=== PATIENT | female | born 1960 | race Caucasian/White ===

== ENCOUNTER 2020-05-17 08:43 | Emergency (ER) | payer SELFPAY ==
--- NOTE | 2020-05-17 09:05 | EDM.PDOC ---
ED HPI GENERAL MEDICAL PROBLEM - General Chief Complaint: Cardiovascular Problem Stated Complaint: [facility] Time Seen by Provider: 05/17/20 08:50 Source of Information: Reports: Patient History Limitations: Reports: No Limitations - History of Present Illness INITIAL COMMENTS - FREE TEXT/NARRATIVE: 59-year-old female presents to the ED per [facility] ambulance. She is currently camping in [place]. She has been camping for about a week. She reports that she was having a lot of pain in her right mid back this morning with muscle spasms. She was trying to cook some pancakes and was stirring the batter then placing a pancake on the grill, at present she feels weak and tired. When she suddenly felt weak and faint and did go down to the ground. Members people talking around her but she cannot communicate. She remembers them calling for 911. I suspect her pulse was weak but her did CPR on her for a period of time unclear for how long. Is feeling nauseated lightheaded and does have a headache. He also has diffuse right arm pain.. Denies any changes in medications recently. Denies any pain on deep respirations. Onset: Today, Sudden Onset Date: 05/17/20 Onset Time: :20 Duration: Minutes: Location: Reports: Head, Back (Mild headache. Right mid back pain which spasms intermittently along her causes rib pain.) Quality: Reports: Other (Stick type pain right parasternal thoracic spine musculature.) Severity: Moderate Improves with: Reports: Rest Worsens with: Reports: Other Context: Denies: Activity, Exercise (With certain certain movements even sitting up causes pain.), Lifting, Sick Contact, Trauma, Other Associated Symptoms: Reports: Loss of Appetite, Malaise, Weakness. 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 [No Known Home Meds] 05/17/20 [History] Social & Family History - Living Situation & Occupation Living situation: Reports: ED ROS GENERAL - Review of Systems Review Of Systems: See Below Constitutional: Reports: Decreased Appetite. Denies: Fever, Chills, Malaise, Weakness, Fatigue, Weight Loss HEENT: Reports: Glasses Respiratory: Denies: Shortness of Breath, Wheezing, Pleuritic Chest Pain, Cough, Sputum, Hemoptysis Cardiovascular: Reports: Lightheadedness. Denies: Chest Pain, Blood Pressure Problem, Claudication, Dyspnea on Exertion, Edema, Orthopnea, Palpitations, PND, Syncope, Other Endocrine: Reports: Fatigue GI/Abdominal: Reports: Nausea : Reports: No Symptoms Musculoskeletal: Reports: Back Pain (Pain in her right mid back with sharp stabbing pain intermittently due to spasm of the musculature paraspinally. Known injuries.) Skin: Reports: No Symptoms Neurological: Reports: Dizziness, Syncope (Syncopal event versus near syncopal event this morning while cooking breakfast. CPR was performed on her for short period of time by her as apparently her pulse was not detectable but was likely very weak.). Denies: Confusion Psychiatric: Reports: No Symptoms Hematologic/Lymphatic: Reports: No Symptoms Immunologic: Reports: No Symptoms ED EXAM, GENERAL - Physical Exam Exam: See Below Exam Limited By: No Limitations General Appearance: Alert, WD/WN, Anxious, Mild Distress, Other (Temperature is 36.6. Heart rate 59 and sinus respiratory 16 O2 sats 100% on room air BP 11/29/1968 but came down to 105/60.) Eye Exam: Bilateral Eye: Normal Inspection (No scleral icterus or blepharal p allor.), PERRL Throat/Mouth: Normal Inspection, Normal Lips, Normal Oropharynx, Other Head: Atraumatic, Normocephalic, Other (No outward signs of any head or facial trauma.) Neck: Normal Inspection, Supple, Non-Tender, Full Range of Motion, Other. No: Carotid Bruit, Lymphadenopathy (L), Lymphadenopathy (R) Respiratory/Chest: No Respiratory Distress, Lungs Clear, Normal Breath Sounds, No Accessory Muscle Use Cardiovascular: Normal Peripheral Pulses, Regular Rate, Rhythm, No Edema, No Gallop, No Murmur, No Rub, Bradycardia (T9 per minute) Peripheral Pulses: 3+: Carotid (L), Carotid (R), Posterior Tibial (L), Posterior Tibial (R), Dorsalis Pedis (L), Dorsalis Pedis (R) GI/Abdominal: Normal Bowel Sounds, Soft, Non-Tender, No Organomegaly, No Abnormal Bruit, No Mass, Pelvis Stable. No: Guarding, Rigid, Rebound, Tender Back Exam: Decreased Range of Motion, Muscle Spasm (Patient has significant paraspinal muscle spasm right lower thoracic spine from thoracic 7 to thoracic 11. Point of maximal tenderness appear to be rib head thoracic 9.), Paraspinal Tenderness (Side), Other. No: CVA Tenderness (L), Vertebral Tenderness ( along the lower thoracic spine) Extremities: Normal Inspection, Normal Range of Motion, Non-Tender, No Pedal Edema Neurological: Alert, Oriented, CN II-XII Intact, Normal Cognition Psychiatric: Anxious Skin Exam: Warm, Dry, Intact, Normal Color, No Rash EKG INTERPRETATION EKG Date: 05/17/20 Time: 09:25 Rhythm: Other (Sinus bradycardia) Rate (Beats/Min): 56 Hayden: LAD-Left Hayden Deviation (Left axis deviation of -32 degrees. Left anterior fascicular block pattern.) P-Wave: Absent (Consider left atrial hypertrophy pattern.) QRS: Other (Decreased voltage in the limb leads.) QT: Prolonged (QTC mildly prolonged) EKG Interpretation Comments: Abnormal ECG. Course - Vital Signs Last Recorded V/S: Last Vital Signs Temp 36.6 C 05/17/20 08:44 Pulse 59 L 05/17/20 08:44 Resp 16 05/17/20 08:44 BP 118/69 05/17/20 08:44 Pulse Ox 100 05/17/20 08:44 Orthostatic Blood Pressure [ 114/65 Standing] Orthostatic Blood Pressure [ 108/71 Sitting] Orthostatic Blood Pressure [ 114/72 Supine] - Orders/Labs/Meds Orders: Active Orders 24 hr Category Date Time Status EKG Documentation Completion [RC] STAT Care 05/17/20 09:04 Active Orthostatic Vital Signs [RC] ASDIRECTED Care 05/17/20 09:04 Active URINALYSIS W/MICROSCOPIC [UA W/MICROSCOPIC] [URIN] Stat Lab 05/17/20 09:05 Ordered Dextrose 5%-Lactated Ringers 1,000 ml Med 05/17/20 09:15 Active IV ASDIRECTED Ketorolac [Toradol] Med 05/17/20 09:15 Active 30 mg IVPUSH ONETIME Medication Orders Dextrose/Lactated Ringer's (Dextrose 5%-Lactated Ringers) 1,000 mls @ 999 mls/hr IV ASDIRECTED [facility] Last Admin: 05/17/20 09:23 Dose: 999 mls/hr Documented by: FAUSTINA Ketorolac Tromethamine (Toradol) 30 mg IVPUSH ONETIME [facility] Last Admin: 05/17/20 09:22 Dose: 30 mg Documented by: FAUSTINA Labs: Laboratory Tests 05/17/20 05/17/20 05/17/20 Range/Units 09:40 09:40 09:40 WBC 4.96 (3.98-10.04) K/mm3 RBC 3.94 L (3.98-5.22) M/mm3 Hgb 11.9 (11.2-15.7) gm/dl Hct 37.2 (34.1-44.9) % MCV 94.4 (79.4-94.8) fl MCH 30.2 (25.6-32.2) pg MCHC 32.0 L (32.2-35.5) g/dl RDW Std Deviation 42.6 (36.4-46.3) fL Plt Count 170 L (182-369) K/mm3 MPV 10.2 (9.4-12.3) fl Neut % (Auto) 65.2 (34.0-71.1) % Lymph % (Auto) 26.4 (19.3-51.7) % Loup % (Auto) 5.4 (4.7-12.5) % Eos % (Auto) 2.2 (0.7-5.8) Baso % (Auto) 0.6 (0.1-1.2) % Neut # (Auto) 3.23 (1.56-6.13) K/mm3 Lymph # (Auto) 1.31 (1.18-3.74) K/mm3 Loup # (Auto) 0.27 (0.24-0.36) K/mm3 Eos # (Auto) 0.11 (0.04-0.36) K/mm3 Baso # (Auto) 0.03 (0.01-0.08) K/mm3 D-Dimer, Quantitative 0.34 (0.19-0.50) mg/L Sodium 140 (136-145) mEq/L Potassium 4.0 (3.5-5.1) mEq/L Chloride 106 (98-107) mEq/L Carbon Dioxide 26 (21-32) mEq/L Anion Gap 12.0 (5-15) BUN 18 (7-18) mg/dL Creatinine 0.8 (0.55-1.02) mg/dL Est Cr Clr Drug Dosing 60.62 mL/min Estimated GFR (MDRD) > 60 (>60) mL/min BUN/Creatinine Ratio 22.5 H (14-18) Glucose 170 H (74-106) mg/dL Calcium 8.5 (8.5-10.1) mg/dL Magnesium 1.9 (1.8-2.4) mg/dl Total Bilirubin 0.3 (0.2-1.0) mg/dL AST 33 (15-37) U/L ALT 43 (14-59) U/L Alkaline Phosphatase 67 (46-116) U/L CK-MB (CK-2) 1.2 (0-3.6) ng/ml Troponin I < 0.017 (0.00-0.056) ng/mL C-Reactive Protein 0.3 (<1.0) mg/dL Total Protein 6.6 (6.4-8.2) g/dl Albumin 3.4 (3.4-5.0) g/dl Globulin 3.2 gm/dL Albumin/Globulin Ratio 1.1 (1-2) Meds: Medications Generic Name Dose Route Start Last Admin Trade Name Freq PRN Reason Stop Dose Admin Dextrose/Lactated Ringer's 1,000 mls @ 999 mls/hr 05/17/20 09:15 05/17/20 09:23 Dextrose 5%-Lactated Ringers IV 999 mls/hr ASDIRECTED ANDREINA Administration Ketorolac Tromethamine 30 mg 05/17/20 09:15 05/17/20 09:22 Toradol IVPUSH 30 mg ONETIME ANDREINA Administration - Radiology Interpretation Free Text/Narrative:: 59-year-old female presents to the ED for evaluation per [facility]. She is capping of the door with her family for the weekend. She states that she was making up pancake batter this morning and was going to place a pancake on the grill when she suddenly felt weak dizzy and went down to the ground. She has been having pain in her right paraspinal muscle on the adjacent to the thoracic spine for the last couple of days but much worse this morning. No known injuries. Is been playing a lot with her grandchildren and carrying them and lifting them and twisting. Being in a camper trailer. This morning she felt unwell well making pancakes and felt lightheaded dizzy and went down to the ground. She remembers people talking around her and that they should call 911. Apparently her did CPR on her for period of time. At this time she jackson s no chest wall tenderness. She still has significant pain on examination of the right parathoracic musculature. Point of maximal tenderness is over the thoracic rib head 9. Suspect rib head subluxation in this area. ECG is abnormal and suggests possible old anteroseptal and inferior wall myocardial infarction's. And orthostatic BPs to be done. Given Toradol 30 mg IV for pain relief. Will have IV D5 Ringer's lactate at 500 mils per hour. Routine labs including cardiac markers to be done. - Re-Assessments/Exams Free Text/Narrative Re-Assessment/Exam: 05/17/20 10:06 chest x-ray reveals heart size mediastinum to be within normal limits for portable technique. Lungs are clear with no acute parenchymal changes. Bony structures are grossly intact. Surgical clips appreciated from previous cholecystectomy.Hematology is back revealing a normal white count at 4.96. The auto differential shows 65% neutrophils. Hemoglobin is 11.9 slightly low with a hematocrit of 37.2. MCV is normal at 94.4. Platelet count 170,000. Static BP show supine blood pressure be 114/72 with a heart rate of 57. Standing BP 114/65 with a heart rate of 68. She has no signs of orthostatic hypotension. 05/17/20 11:15 Dimer is normal at 0.34. Sodium is 140 with a potassium of 4.0. Chloride 106 with a bicarb of 26. Anion gap is 12.0. BUN is 18 with a creatin ine of 0.8 GFR is greater than 60. Leukos 170. Calcium 8.5 with a magnesium of 1.9. Liver function is normal. CK-MB fraction is 1.2 troponin I is less than 0.017 C-reactive protein 0.3 total protein 6.6 with an albumin fraction slightly low at 3.4. 05/17/20 11:24 woke with her who is now here. He indicates that she probably lost consciousness for a full 30 seconds to a minute. He performed CPR about 12 compressions. Nurse came by and also administered [id number]. At present the patient is feeling somewhat better. She is feeling cold in the room likely from cool IV fluids. She will be discharged in the care of her at this time. Advised chiropractic manipulation of her ninth rib and they are looking around for a chiropractor at this time. Departure - Departure Time of Disposition: 11:25 Disposition: Home, Self-Care 01 Reason for Transfer *Q: Other Condition: Fair Clinical Impression: Syncope and collapse, Vasovagal syncope Right-sided thoracic back pain Qualifiers: Chronicity: acute Qualified Code(s): M54.6 - Pain in thoracic spine Referrals: PCP,Not In Area [Primary Care Provider] - Forms: ED Department Discharge Additional Instructions: Evaluation in the emergency room today in regards to a syncopal collapse event that occurred in [place] at the campground where you were staying. You were making pancakes at the time and family members were around you. They assisted you to the ground and he reportedly lost consciousness for between 30 and 60 seconds. Brief CPR was in fact performed on you as no pulses were palpable. Investigations the ED showed normal chest x-ray and lab tests all proved to be completely normal as well. ECG or heart tracing shows some abnormalities and I would suggest having follow-up consultation with your doctor when you get back home. B of your ECG will be sent with your discharge summary. In regards to your right mid back pain clinically you have a rib head subluxation at thoracic 9 level. Suggest chiropractic manipulation of this area to reduce your pain. I feel the pain response produced something called vasovagal syncope drome which lowers your heart rate which in turn lowers your blood pressure and caused you to pass out today. I do not suspect any other serious pathology such as a cardiac arrhythmia. This Motrin 600 mg every 6 hours or Aleve 2 tablets every 8 hours to relieve pain and inflammation. If you can find a chiropractor may look up [facility] on [address] [place] [address] Phone number is [phone] . Sepsis Event Note (ED) - Evaluation Sepsis Screening Result: No Definite Risk - Focused Exam Vital Signs: Vital Signs Temp Pulse Resp BP Pulse Ox 05/17/20 08:44 36.6 C 59 L 16 118/69 100 - My Orders Last 24 Hours: My Active Orders 05/17/20 09:04 EKG Documentation Completion [RC] STAT Orthostatic Vital Signs [RC] ASDIRECTED 05/17/20 09:05 URINALYSIS W/MICROSCOPIC [UA W/MICROSCOPIC] [URIN] Stat 05/17/20 09:15 Dextrose 5%-Lactated Ringers 1,000 ml IV ASDIRECTED Ketorolac [Toradol] 30 mg IVPUSH ONETIME - Assessment/Plan Last 24 Hours: My Active Orders 05/17/20 09:04 EKG Documentation Completion [RC] STAT Orthostatic Vital Signs [RC] ASDIRECTED 05/17/20 09:05 URINALYSIS W/MICROSCOPIC [UA W/MICROSCOPIC] [URIN] Stat 05/17/20 09:15 Dextrose 5%-Lactated Ringers 1,000 ml IV ASDIRECTED Ketorolac [Toradol] 30 mg IVPUSH ONETIME
[2020-05-17] MEDS ORDERED: Dextrose 5%-Lactated Ringers 1,000 ML IV SCH (09:15)
[2020-05-17] MEDS ORDERED: Ketorolac 30 MG/ML SDV IVPUSH SCH (09:15)
--- NOTE | 2020-05-17 09:46 | CR ---
Chest: Portable view of the chest was obtained. Comparison: No prior chest imaging. Heart size and mediastinum are within normal limits for portable technique. Lungs are clear with no acute parenchymal change. Bony structures are grossly intact. Surgical clips are noted from prior cholecystectomy. Impression: 1. Nothing acute is seen on portable chest x-ray. Diagnostic code #2 This report was dictated in MDT
== END 2020-05-17 11:40 | disposition home or self-care (01) ==
LOC: JD.ED 08:43
DX: M54.6 Pain in thoracic spine (principal); R55 Syncope and collapse; I44.4 Left anterior fascicular block; Z88.0 Allergy status to penicillin
CPT/HCPCS: 36415; 71045; 80053; 82553; 83735; 84484; 85025; 85379; 86140; 93005; 96361; 96374; 99285; J1885; J7121; 93010